=== PATIENT | female | born 1995 | race African-American/Black ===

== ENCOUNTER 2017-02-23 21:11 | Emergency (ER) | payer MEDICAID ==
[~2017-02-23] VITALS: Ht 157.5 cm; Wt 109.0 kg
[2017-02-24] MEDS ORDERED: IPRATROPIUM/ALBUTEROL 0.5-3(2.5)MG/3ML NEB HHN ONE (02:45)
[2017-02-24] MEDS ORDERED: BENZONATATE 100MG CAPSULE PO ONE (02:45)
[2017-02-24 03:06] VITALS: BP 110/69
== END 2017-02-24 05:33 | disposition home or self-care (01) ==
LOC: ER 02-24 04:17
DX: J21.9 Acute bronchiolitis, unspecified (principal)
CPT/HCPCS: 81025; 94640; 99283; J7620

== ENCOUNTER 2017-05-28 15:25 | Emergency (ER) | payer MEDICAID ==
[~2017-05-28] VITALS: Ht 167.6 cm; Wt 90.0 kg
[2017-05-28] MEDS ORDERED: IBUPROFEN 800MG TABLET PO ONE (20:45)
[2017-05-28 21:20] LABS: HCG SCREEN NEGATIVE
[2017-05-28 21:54] VITALS: BP 110/75
== END 2017-05-28 21:55 | disposition home or self-care (01) ==
LOC: ER 17:23
DX: H66.92 Otitis media, unspecified, left ear (principal); Z98.890 Other specified postprocedural states
CPT/HCPCS: 84703; 99283